=== PATIENT | female | born 1995 | race Two or more races ===

== ENCOUNTER 2017-07-24 00:02 | Emergency (ER) | payer MEDICAID, OTHER ==
[~2017-07-24] VITALS: Ht 162.6 cm; Wt 95.1 kg
[2017-07-24 00:08] VITALS: BP 155/89
[2017-07-24 01:20] LABS: HEMOGLOBIN 14.8 g/dL (11.7-16.4); WHITE BLOOD COUNT 14.9 x10^3/uL (3.4-10)
[2017-07-24 01:33] LABS: BLOOD UREA NITROGEN 11 mg/dL (7-18)
[2017-07-24 01:39] LABS: IS PT STATUS REG ER OR PRE ER? YES
[2017-07-24] MEDS ORDERED: KETOROLAC 30 MG/1 ML ONE (01:58)
[2017-07-24] MEDS ORDERED: KETOROLAC 30 MG/1 ML IM ONE (02:00)
== END 2017-07-24 02:23 | disposition home or self-care (01) ==
LOC: ED 01:50
DX: S29.012A Strain of muscle and tendon of back wall of thorax, initial encounter (principal); X58.XXXA Exposure to other specified factors, initial encounter; Y93.89 Activity, other specified; Y92.89 Other specified places as the place of occurrence of the external cause; Y99.8 Other external cause status
CPT/HCPCS: 36415; 71010; 80048; 82040; 84484; 84703; 85025; 85379; 93005; 96372; 99285; J1885